=== PATIENT | female | born 1985 | race Caucasian/White ===

== ENCOUNTER → 2018-04-13 08:09 | Outpatient (CLI) | payer OTHER, SELFPAY ==
--- NOTE | 2018-04-13 08:09 | DT_ITS ---
This patient was seen during an EMR downtime April 11, 2018 - April 18, 2018. This patient may have a combination of paper and electronic documentation or all paper documentation. All documentation is viewable within the e-chart portion of [facility] for each patient visit.
[2018-04-18 14:12] LABS: Progesterone Level 10.68 ng/mL (See Comment)
[2018-04-19 17:37] LABS: Hemoglobin A1c 4.9 % (4.2-6.3)
[2018-04-19 17:39] LABS: Estradiol 133.5 pg/mL; Free T3 3.2 pg/mL (2.18-3.98); T4 Free Direct 0.82 ng/dL (0.76-1.46)
[2018-04-19 20:54] LABS: Thyroid Stim Hormone (TSH) 0.54 uIU/mL (0.358-3.74)
== END ==
PROVIDERS: Family Provider Family Medicine; PCP Family Medicine; Visit Provider Obstetrics & Gynecology
DX: N93.9 Abnormal uterine and vaginal bleeding, unspecified (principal); N93.8 Other specified abnormal uterine and vaginal bleeding; N92.5 Other specified irregular menstruation
CPT/HCPCS: 36415; 82670; 83036; 84144; 84403; 84439; 84443; 84481

== ENCOUNTER → 2018-07-06 07:45 | Outpatient (CLI) | payer OTHER, SELFPAY ==
[2018-07-06 08:42] LABS: Estradiol 150.2 pg/mL
[2018-07-06 10:00] LABS: Progesterone Level 40.62 ng/mL (See Comment)
== END ==
PROVIDERS: Family Provider Family Medicine; PCP Family Medicine; Visit Provider Obstetrics & Gynecology
DX: N93.9 Abnormal uterine and vaginal bleeding, unspecified (principal)
CPT/HCPCS: 36415; 82670; 84144

== ENCOUNTER → 2019-03-27 | Outpatient (CLI) | payer OTHER, SELFPAY ==
--- NOTE | 2019-03-27 | FLU_PTH ---
PATIENT: DALTON MORSE LOC: [facility] U#:[id number] AGE/SX: 33/F ROOM: RE03/27/[address]: Dr. Judy Hagen MD : [id number] BED: DIS: 03/27/2019 SPEC #: [id number] RECD: 03/27/19 15:16 STATUS: JI REMichele #: [id number] ANTOINETTE: 03/27/19 00:[address]: Judy Hagen DEPT: CYTOLOGY RECD BY: Ferny Odell ENTERED: 03/28/19 10:02 SP TYPE: Fluid OTHR DR: Dr. Jaren Diallo MD Tissues: A - Thyroid gland, NOS B - Thyroid gland, NOS C - Thyroid gland, NOS D - Thyroid gland, NOS Procedures: Special Stain Group II Surgery Specimen Level IV Cytospin Fluid Cytology Other HEADER OPERATION: Ultrasound-guided fine needle aspiration of left thyroid and isthmus PRE-OP DIAGNOSIS: Thyroid nodules TISSUE SUBMITTED: A - FNA left thyroid fluid for cytology, B - FNA left thyroid slides x8, C - FNA isthmus fluid for cytology, D - FNA isthmus slides x6 DIAGNOSIS CYTOLOGY A. Fine needle aspiration, left thyroid nodule (cytospin and cell block): Consistent with benign follicular nodule with cystic change. See comment. B. Fine needle aspiration, left thyroid nodule (smears): Adequate for evaluation. Consistent with benign follicular nodule with cystic change. Chronic inflammation. C. Fine needle aspiration, isthmic nodule (cytospin and cell block): Adequate for evaluation. Consistent with benign follicular nodule. D. Fine needle aspiration, isthmic nodule (smears): Adequate for evaluation. Consistent with benign follicular/colloid nodule. AM:negrita 03/29/19 COMMENT A. The specimen is adequate for evaluation. CYTOLOGY STUDY Slides are reviewed. CYTOLOGY GROSS A - Received is 20 ml of brown cloudy fluid labeled with the patient's name and and designated per the requisition as left thyroid. Submitted for cytology preparation including cell block. B - Received are eight smears labeled with the patient's name and designated per the requisition as left thyroid. Submitted for staining. C - Received is 20 ml of light yadav fluid labeled with the patient's name and and designated per the requisition as isthmus. Submitted for cytology preparation including cell block. D - Received are six smears labeled with the patient's name and designated per the requisition as isthmus. Submitted for staining. 03/28/19 TC:5 CPT: 43015 x2, 10683 x2, 77552 x2
== END | disposition home or self-care (01) ==
LOC: LABSPEC 16:44
PROVIDERS: Family Provider Family Medicine; PCP Family Medicine; Referring Provider Surgery; Visit Provider Surgery
DX: E04.2 Nontoxic multinodular goiter (principal)
CPT/HCPCS: 88108; 88161; 88305; 88313

== ENCOUNTER 2022-02-11 07:54 | Outpatient (CLI) | payer OTHER, SELFPAY ==
--- NOTE | 2022-02-11 08:00 | RAD_ITS ---
STUDY: AIR CONTRAST UPPER GI SERIES and esophagram. REASON FOR EXAM: Female, 36 years old. DYSPHAGIA FLUOROSCOPY TIME (if supplied): (1 minute.) minutes/seconds 24 images were obtained. TECHNIQUE: SINGLE CONTRAST AND AIR CONTRAST FLUOROSCOPIC IMAGES of the esophagus and stomach were obtained. COMPARISON: None. FINDINGS: The cervical esophagus demonstrates normal motility without aspiration. There is no stricture or extrinsic mass effect. No intraluminal polypoid mass is identified. The thoracic esophagus distends well without stricture or mucosal fold thickening. No mucosal ulcerations are identified. There is no extrinsic mass effect. There are no diverticula. There is evidence of gastroesophageal reflux. The patient ingested a 12 mm tablet of barium without any history. The stomach distends well without mucosal fold thickening or mucosal ulceration. There is no intraluminal mass. The duodenal bulb is freely distensible without deformity or ulceration. The duodenal sweep is normal in position and caliber. RAD/Upper GI w/BA Swallow IMPRESSION: Gastroesophageal reflux. Electronically Signed: Elias Dunn MD at 10:55 EDT ,
== END 2022-02-11 23:59 | disposition home or self-care (01) ==
LOC: RAD 07:55
PROVIDERS: PCP Family Medicine; Visit Provider Family Medicine
DX: R13.14 Dysphagia, pharyngoesophageal phase (principal)
CPT/HCPCS: 74246

== ENCOUNTER 2023-01-08 08:57 | Day surgery (SDC) | payer OTHER, SELFPAY ==
--- NOTE | 2022-12-25 14:39 | HP.PCM_ITS ---
History and Physical Date of Admission: 12/11/22 HPI: The patient is a 37 year old female presenting for pre-operative visit. She is scheduled for hysteroscopy with endometrial ablation, for menorrhagia.. Procedure discussed along with risks, benefits and complications. Other alternatives discussed for management. Consent form signed? Yes. ? ? PAST MEDICAL HISTORY PAST MEDICAL HISTORY Diagnosis Date ? History of COVID-19 11/11/2021 ? 11/2021 ? Multinodular thyroid ? ? Periumbilical mass 05/04/2016 ? ? PAST SURGICAL HISTORY PAST SURGICAL HISTORY Procedure Laterality Date ? EXTRACTION, ERUPTED TOOTH OR EXPOSED ROOT (ELEVATION AND/OR FORCEPS REMOVAL) ? 2000 ? LIGATE FALLOPIAN TUBE ? ? ? PAST SURGICAL HISTORY OF ? ? ? 2 c-sections ? ? ? CURRENT MEDICATIONS Current Outpatient Medications Medication Sig Dispense Refill ? omeprazole (PRILOSEC) 40 mg capsule TAKE 1 CAPSULE BY MOUTH ONCE DAILY 90 capsule 2 ? tranexamic acid (LYSTEDA) 650 mg tablet Take 2 tablets by mouth three times daily as needed (heavy menstrual bleeding) for up to 5 days. 30 tablet 1 ? lisinopril (ZESTRIL, PRINIVIL) 5 mg tablet Take 1 tablet by mouth once daily. 30 tablet 5 ? multivitamin tablet Take 1 tablet by mouth once daily. ? ? ? No current facility-administered medications for this visit. ? ? ALLERGIES: Patient has no known allergies. ? PERSONAL HISTORY: SOCIAL HISTORY Social History ? Tobacco Use ? Smoking status: Never ? Smokeless tobacco: Never Vaping Use ? Vaping Use: Never used Substance Use Topics ? Alcohol use: Yes ? ? Comment: occasional ? Drug use: Never ? FAMILY HISTORY: FAMILY HISTORY FAMILY HISTORY Problem Relation Age of Onset ? Hypertension Father ? ? Prostate Cancer Father ? ? No Known Problems Sister ? ? No Known Problems Sister ? ? Coronary Artery Disease Maternal Grandmother ? ? angioplasty a few times ? Cancer Maternal Grandmother ? ? pancreatic ? Coronary Artery Disease Maternal Grandfather ? ? bypass ? Breast Cancer Paternal Grandmother ? ? Cervical Cancer Paternal Grandmother ? ? Cancer Paternal Grandmother ? ? liver, lymphnode and Lung ? ? REVIEW OF SYMPTOMS: GENERAL: denies fevers or chills ENDOCRINOLOGY: has not been on steroids Cardiology : denies palpitations or chest pain Respiratory: denies SOB or cough Hematology: denies history of prolonged bleeding or easy bruising or VTE Allergy: Denies history of personal or family history of allergy to anesthesia ? PHYSICAL EXAMINATION: ? VITALS: Blood pressure 112/76, pulse 89, resp. rate 16, height 5' 5 (1.651 m), weight 173 lb (78.5 kg), last menstrual period 12/01/2022, SpO2 98 %. ? GENERAL: The patient is well nourished, well hydrated in no acute distress. , The patient is oriented to time, place, and person. NECK: Supple. No lynphadenopathy, normal thyroid, no thyromegaly. LUNGS: Clear to auscultation bilaterally. no wheezes, rhonchi or rales HEART: Regular rate and rhythm, Normal heart sounds, and No murmurs or gallops ? IMPRESSION: menorrhagia ? PLAN: The risks/benefits/alternatives and personal involved for the planned hysteroscopy with endometrial ablation were reviewed with the patient. Her ques tions were answered to her satisfaction and she desires to proceed. Consent was signed. I reviewed with her postop instructions and expectations. ? ? I have reviewed and updated past medical and surgical history, medications and allergies Assessment & Plan Assessment/Plan (1) Menorrhagia:
[2023-01-08] VITALS (7 sets, daily range): BP systolic 115–136; BP diastolic 80–88; PULSE 72–105; RESP 16–18; TEMP 36.6–37.1; O2SAT 98–99; BMI 28.9
[2023-01-08] MEDS: Lactated Ringers 1,000 ML 15 ML IV (09:34)
[2023-01-08] MEDS: Acetaminophen 500 MG Tablet 1000 MG PO (09:35)
[2023-01-08] MEDS: Ketorolac 30 MG/ML Syringe IV (09:35)
[2023-01-08 09:36] LABS: Hemoglobin 14.5 g/dL (12.0-15.0); Internal QC Validated? YES +Cl - CLEAR BKGD; Mean Corp Hgb Conc 33.7 g/dL (32-36); Mean Corpuscular Hgb 30.2 pg (27.0-32.0); Mean Corpuscular Volume 89.6 fL (81-99); Mean Platelet Vol. 10.4 fl (6.2-12.0); Platelet Count 299 K/mm3 (150-450); Pregnancy, Urine Negative Negative; RBC Distribution Width CV 11.9 % (11.6-14.6); White Blood Count 6.3 K/mm3 (4.4-11.0)
--- NOTE | 2023-01-08 11:14 | DCINST_ITS ---
Discharge Instructions Diet Discharge Diet: No restrictions Activity May resume sexual activity in: 2 weeks Lifting Restrictions: none Dressing / Incision Call your doctor if your incision/area has: Sudden Increased Bleeding and Foul Smelling Discharge Call your doctor if you observe: Fever of 101 or Higher and Using more than 1 pad per hour (for 2 hrs in a row) Follow Up Care Please Follow Up With: Priti Fragoso MD When: 2-4 weeks or as needed. Call [phone] to make an appointment or with any concerns. Test Results: Test results from this visit will be discussed in further detail at your follow- up appointment, if applicable. Discharge Plan Admission Primary Reason for Your Visit: Hysteroscopy with endometrial ablation Attending Provider: Priti Fragoso Primary Care Provider: Jaren Diallo Discharge Orders/Prescriptions Prescriptions: New ibuprofen [ibuprofen] 600 MG tablet 600 mg PO Q6H PRN (Reason: Pain) 20 Days Qty: 20 1RF Continued omeprazole 40 mg capsule,delayed release(DR/EC) 40 mg PO DAILY Label Comments: TAKE 1 CAPSULE BY MOUTH ONCE DAILY lisinopril 5 mg tablet 5 mg PO DAILY Multi-Vitamin 1 tab PO/SL DAILY Referrals / Follow Up: Jaren Diallo MD [Primary Care Provider] - Disposition Disposition (needs filled in before D/C Order can be placed): Home, Self Care
[2023-01-08] MEDS: Lidocaine 1% /Epi 1:100 (20ml) 20 ML Vial (11:22)
--- NOTE | 2023-01-08 11:43 | OP.PCM_ITS ---
Problems Associated Problem List Diagnoses (1) Menorrhagia: Report of Operation Date of Procedure: 01/08/23 Pre-Operative Diagnosis: menorrhagia Post-Operative Diagnosis: same Surgery/Procedure Performed:: hysteroscopy with Daria endometrial ablation Description of Surgical Findings:: normal cervix, retroverted uterus, normal vagina, lush endometrium Surgeon: Priti Fragoso filler leaf cutter long: Courtney Aceves Ms4 Type of Anesthesia: MAC/Supplemental/Local Anesthesiologist: Rima Knapp Special Medications: none Specimen's removed: none Drains: none Estimated Blood Loss (mL): 10 Fluids Replaced: 1000 Description of Procedure: The patient was taken to the OR where she was prepped and draped in dorsal lithotomy position. The weighted speculum was placed in the vagina and the anterior lip of the cervix was grasped with a single-tooth tenaculum. A paracervical block was administered with [1% lidocaine with 1-100,000 epine phrine solution]. The cervix was dilated serially with Hegar dilators. The 3 mm hysteroscope was placed into the uterine cavity and the above findings were noted. Bilateral tubal ostia [were] identified. The uterus sounded to [9]cm and the cervical length was 3.5 cm. The endometrial cavity length was 5.5 cm. The hysteroscope was removed. The Daria device was set to 5.5 cm. The instrument was then seated into the endometrial cavity and the indicator was in the green. The cervical seal balloon was inflated and the uterine integrity test was passed. The ablation procedure was initiated and completed without interruption. During the ablation procedure gentle traction was held on the tenaculum and the Daria device was held up against the uterine fundus. When the ablation procedure was completed the Daria was removed. The tenaculum was removed and the tenaculum site was noted to be hemostatic. All sponge and needle counts were correct. A vaginal sweep was performed by me. The patient was awakened and taken to the recovery room in stable condition. Hysteroscopic fluid used 100 cc of normal saline Grafts/Implants Used: none Procedure Start Time: 11:18 Procedure Stop Time: 11:35 Complications none Admit VTE Documentation VTE Present on Admission: No VTE Mechan Device Prophylaxis: SCD's VTE Pharm Prophylaxis ordered?: No Reason prophylaxis not ordered:: Procedure Not Indicated
== END 2023-01-08 12:50 | disposition home or self-care (01) ==
LOC: SDC 09:05 → AC 09:05
PROVIDERS: Anesthesiology; PCP Family Medicine; Referring Provider Obstetrics & Gynecology; Visit Provider Obstetrics & Gynecology
PROC: 0U5B8ZZ Destruction of Endometrium, Via Natural or Artificial Opening Endoscopic (ICD-10-PCS; CPT 58558; principal; 2023-01-08 11:20)
DX: N92.0 Excessive and frequent menstruation with regular cycle (principal); Z86.16 Personal history of COVID-19; I10 Essential (primary) hypertension; K21.9 Gastro-esophageal reflux disease without esophagitis; E04.1 Nontoxic single thyroid nodule
CPT/HCPCS: 58563; 00952; 81025; 85027; J7120; J2405